=== PATIENT | female | born 1950 | race Caucasian/White ===

== ENCOUNTER 2017-11-29 10:27 | Inpatient (IN) ==
[2017-11-29 14:16] LABS: BASOPHILS % (AUTO) 0.5 % (0.2-1.0); EOSINOPHILS # (AUTO) 0.1 x10^3/uL (0.0-0.2); EOSINOPHILS % (AUTO) 1.1 % (0.9-2.9); HEMOGLOBIN 12.8 g/dL (12.0-16.0); LYMPHOCYTES # (AUTO) 0.8 X10^3/uL (1.3-2.9); LYMPHOCYTES % (AUTO) 12.5 % (21.0-51.0); MEAN CORPUSCULAR HEMOGLOBIN 26.5 pg (27.0-34.0); MEAN CORPUSCULAR VOLUME 80.4 fL (80.0-100.0); MEAN PLATELET VOLUME 7.6 fL (7.4-11.0); MONOCYTES # (AUTO) 0.2 x10^3/uL (0.3-0.8); MONOCYTES % (AUTO) 3.6 % (0.0-13.0); NEUTROPHILS # (AUTO) 5.4 x10^3/uL (2.2-4.8); NEUTROPHILS % (AUTO) 82.3 % (42.0-75.0); PLATELET COUNT 246 X10^3/uL (150.0-450.0); RED BLOOD COUNT 4.84 X10^6/uL (3.5-5.4); RED CELL DISTRIBUTION WIDTH 15.6 % (11.6-16.5); WHITE BLOOD COUNT 6.5 X10^3/uL (3.6-10.0)
[2017-11-29 14:48] LABS: ALANINE AMINOTRANSFERASE 27 Units/L (12-78); ALBUMIN 3.6 g/dL (3.4-5.0); ALKALINE PHOSPHATASE 62 Units/L (46-116); ASPARTATE AMINO TRANSFERASE 20 Units/L (15-37); BLOOD UREA NITROGEN 21 mg/dL (7-18); CALCIUM 9.4 mg/dL (8.5-10.1); CARBON DIOXIDE 27.3 mmol/L (21-32); CHLORIDE 104 mmol/L (98-107); CREATININE 1.09 mg/dL (0.55-1.02); SODIUM 140 mmol/L (136-145); TOTAL PROTEIN 7.6 g/dL (6.4-8.2); eGFR NON BLACK RACES 53 (>60)
[2017-11-29] MEDS: ZOSYN VIAL 3.375 GRAMS 3.375 G in NS 100 ML IV + SPIKE MINIBAG* 100 ML IV SCH ×3 (14:58→21:14)
[2017-11-29] MEDS: NS 1000 ML 1,000 ML IV SCH (14:58)
[2017-11-29] MEDS ORDERED: XYLOCAINE 1 % (PLAIN) ONE (15:47)
--- NOTE | 2017-11-29 16:12 | OR.GENERIC ---
Post-Op Note Generic - Post-Op Note Operative Report: I & D skin abscess anterior chest wall .C&S was obtained .. Pt did well . on IV ATB and local care ...
[2017-11-29 16:50] VITALS: BMI 26.6
[2017-11-29] MEDS: NORCO 5/325 MG TAB PO PRN (20:00)
[2017-11-30] MEDS: NS 1000 ML 1,000 ML IV SCH ×2 (03:10→09:05)
[2017-11-30 05:27] LABS: BASOPHILS % (AUTO) 0.5 % (0.2-1.0); EOSINOPHILS # (AUTO) 0.2 x10^3/uL (0.0-0.2); EOSINOPHILS % (AUTO) 2.8 % (0.9-2.9); HEMATOCRIT 36.7 % (36.0-47.0); LYMPHOCYTES # (AUTO) 1.9 X10^3/uL (1.3-2.9); LYMPHOCYTES % (AUTO) 26.3 % (21.0-51.0); MEAN CORPUSCULAR HEMOGLOBIN 26.4 pg (27.0-34.0); MEAN CORPUSCULAR HGB CONC 32.8 g/dL (33.0-35.0); MEAN CORPUSCULAR VOLUME 80.5 fL (80.0-100.0); MEAN PLATELET VOLUME 7.6 fL (7.4-11.0); MONOCYTES # (AUTO) 0.6 x10^3/uL (0.3-0.8); MONOCYTES % (AUTO) 8.1 % (0.0-13.0); NEUTROPHILS # (AUTO) 4.5 x10^3/uL (2.2-4.8); NEUTROPHILS % (AUTO) 62.3 % (42.0-75.0); PLATELET COUNT 227 X10^3/uL (150.0-450.0); RED BLOOD COUNT 4.56 X10^6/uL (3.5-5.4); RED CELL DISTRIBUTION WIDTH 15.5 % (11.6-16.5); WHITE BLOOD COUNT 7.2 X10^3/uL (3.6-10.0)
[2017-11-30 05:28] LABS: ALANINE AMINOTRANSFERASE 22 Units/L (12-78); ALBUMIN 3.1 g/dL (3.4-5.0); ALKALINE PHOSPHATASE 52 Units/L (46-116); ASPARTATE AMINO TRANSFERASE 20 Units/L (15-37); BLOOD UREA NITROGEN 20 mg/dL (7-18); CALCIUM 8.3 mg/dL (8.5-10.1); CARBON DIOXIDE 27.7 mmol/L (21-32); CHLORIDE 108 mmol/L (98-107); CREATININE 1.14 mg/dL (0.55-1.02); SODIUM 143 mmol/L (136-145); TOTAL PROTEIN 6.7 g/dL (6.4-8.2); eGFR NON BLACK RACES 51 (>60)
[2017-11-30] MEDS: ZOSYN VIAL 3.375 GRAMS 3.375 G in NS 100 ML IV + SPIKE MINIBAG* 100 ML IV SCH (06:14)
[2017-11-30] MEDS ORDERED: ASPIRIN PO SCH (09:00)
[2017-11-30] MEDS ORDERED: ROCALTROL PO SCH (09:00)
[2017-11-30] MEDS ORDERED: MEMANTINE PO SCH (09:00)
[2017-11-30] MEDS ORDERED: LIPITOR TAB 10 MG PO SCH (09:00)
[2017-11-30] MEDS ORDERED: SYNTHROID 112 mcg TAB PO SCH (09:00)
[2017-11-30] MEDS ORDERED: PERIACTIN TAB 4 MG PO SCH (09:00)
[2017-11-30] MEDS ORDERED: PREDNISONE TAB 5 MG PO SCH (09:00)
[2017-11-30] MEDS ORDERED: FOLIC ACID TAB 1 MG PO SCH (09:00)
[2017-11-30] MEDS ORDERED: PLAQUENIL PO SCH (09:00)
[2017-11-30] MEDS ORDERED: CALCITRIOL PO SCH (09:00)
[2017-11-30] MEDS: NORCO 5/325 MG TAB PO PRN (09:06)
--- NOTE | 2017-11-30 09:54 | DR.UPDATE ---
H&P Update History and Physical Update: WAS SEEN IN THE OFFICE TODAY. A H&P WAS COMPLETED PRIOR TO ADMISSION. PATIENT HAS BEEN SEEN AND EXAMINED WITH NO CHANGES NOTED TO H&P. Changes noted: NO Yes with the following:
[2017-11-30 12:13] VITALS: BP 128/58
[2017-11-30] MEDS ORDERED: FLEXERIL TAB 10 MG PO SCH (21:00)
[2017-11-30] MEDS ORDERED: PATIENT'S HOME MEDICATION (Mirtazapine [Mirtazapine] 1 TAB) PO SCH (21:00)
[2017-11-30] MEDS ORDERED: REMERON PO SCH (21:00)
--- NOTE | 2017-12-23 19:35 | DR.CARTERD ---
- Discharge Summary for: Discharge Summary for Date of:: 11/30/17 - Admission Date Date of Admission: 11/29/17 - Admission Diagnoses Admission Diagnosis: 1. Chest wall cellulitis 2. Anterior chest wall abscess - Discharge Date Discharge Date: 11/30/17 - Discharge Diagnoses Discharge Diagnosis: 1. Chest wall cellulitis 2. Anterior chest wall abscess - Hospital Course Hospital Course: Ms. Perla presented to the hospital as a direct admission after a follow up office visit for chest wall cellulitis. Patient was placed on Bactrim at last visit and this day, patient reported worsening symptoms. Area appeared larger and noted tenderness on palpation. Patient admitted to the hospital and started on IV antibiotics and Dr. Gandhi, General Surgeon, consulted for I&D. Patient taken to the operating room for incision and drainage of anterior chest wall abscess. Area opened and a moderate amount of purulent material was evacuated, this was cultured. The cavity was irrigated, cleaned, and packed. We continued with IV antibiotics. Medical History: Dementia, Hypertension, Gerd , Back Pain, Hyperthyroidism. Medications: Zosyn 3.375gm IV TID, NS @50ml/hr, [place]prise 5/325mg po Q4hr PRN. Abnormal Labs: MCH 26.5, BUN 21, Creatinine 1.09, GFR non 53, A/G ratio 0.9. Blood Cultures x2 obtained. Chest Wall Wound Culture Pending; Gram Stain - WBC Rare, Gram Pos Cocci Rare. On day two, final wound culture and blood cultures were negative for growth. Patient reported she felt well. She reported decreased pain to abscess site. Cellulitis to site had greatly improved. Vital signs stable. Labs wnl. We planned for discharge. Instructions for medications and follow up were discussed with patient and family, both voiced understanding. Patient discharged home in stable condition with family. - Discharge Medications Discharge Medications: Home Medication List aspirin 1 tab PO DAILY 11/29/17 [History] atorvastatin 1 tab PO DAILY 11/29/17 [History] calcitriol 1 cap PO BID 11/29/17 [History] cyclobenzaprine 0.5 tab PO HS 11/29/17 [History] cyproheptadine 1 tab PO DAILY 11/29/17 [History] folic acid 1 tab PO DAILY 11/29/17 [History] hydroxychloroquine 1 tab PO DAILY 11/29/17 [History] levothyroxine 1 tab PO DAILY 11/29/17 [History] memantine 1 cap PO DAILY 11/29/17 [History] mirtazapine 1 tab PO HS 11/29/17 [History] prednisone 1 tab PO DAILY 11/29/17 [History] ciprofloxacin HCl 750 mg PO BID #28 tab 11/30/17 [Rx] hydrocodone-acetaminophen [Surprise] 1 tab PO Q6H PRN #20 tab 11/30/17 [Rx] Prescriptions: ciprofloxacin HCl Ryan Victoria hydrocodone-acetaminophen [Surprise] Ryan Victoria - Discharge Disposition Discharge Disposition: Patient is to follow up with Dr. Gandhi in one week and in our office in one week.
== END 2017-11-30 11:10 | disposition home or self-care (01) | DRG 603 ==
LOC: MED/SURG 12:40
PROVIDERS: ADMIT Internal Medicine; ATTEND Internal Medicine
DX: L03.313 Cellulitis of chest wall; L02.213 Cutaneous abscess of chest wall; E78.2 Mixed hyperlipidemia; E55.9 Vitamin D deficiency, unspecified; Z66 Do not resuscitate; F03.90 Unspecified dementia, unspecified severity, without behavioral disturbance, psychotic disturbance, mood disturbance, and anxiety; E03.8 Other specified hypothyroidism; D51.8 Other vitamin B12 deficiency anemias; M32.8 Other forms of systemic lupus erythematosus
CPT/HCPCS: 36415; 80053; 85025; 87040; 87070; 87205; A4216; A4222; J2543; J7030; J7050; J7512